=== PATIENT | female | born 1990 | race Caucasian/White ===

== ENCOUNTER 2019-04-07 00:39 | Emergency (ER) | payer OTHER ==
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
[2019-04-07 01:59] VITALS: BP 147/89
== END 2019-04-07 01:05 | disposition home or self-care (01) ==
LOC: ED 00:39
DX: Z77.21 Contact with and (suspected) exposure to potentially hazardous body fluids (principal)
CPT/HCPCS: 86703; 86706; 86803; 99282